=== PATIENT | female | born 1970 | race Caucasian/White ===

== ENCOUNTER → 2018-04-19 08:09 | Outpatient (CLI) | payer OTHER, SELFPAY ==
[2018-04-19 12:19] LABS: Absolute Lymphocyte Count 2.64 X10^3/ul (0.83-4.51); Basophil# 0.03 X10^3/uL; Basophil% 0.3 % (0-1); Eosinophil# 0.13 X10^3/uL; Eosinophils% 1.4 % (0-5); Hematocrit 43.9 % (37-47); Hemoglobin 13.9 g/dl (12.0-15.0); Lymphocyte # 2.64 X10^3/ul (4.0); Lymphocyte % 28.1 % (19-41); Mean Corp Hgb Conc 31.7 g/gl (32-36); Mean Corpuscular Hgb 27.7 pg (27.0-32.0); Mean Corpuscular Volume 87.5 fL (81-99); Mean Platelet Vol. 10.9 fl (6.2-12.0); Monocyte# 0.56 X10^3/uL; Neutrophil # 5.96 X10^3/uL (2.7-7.7); Neutrophil % 63.6 % (47-70); Platelet Count 318 K/mm3 (150-450); RBC Distribution Width CV 13.8 % (11.6-14.6); RBC Distribution Width SD 43.9 fl (35.1-43.9); Red Blood Count 5.02 M/mm3 (4.2-5.4); White Blood Count 9.4 K/mm3 (4.4-11.0)
[2018-04-19 12:28] LABS: POSITIVE COUNT NO; POSITIVE DIFFERENTIAL NO; POSITIVE MORPHOLOGY NO
[2018-04-19 12:34] LABS: Microalbumin,Random Urine 17.6 mg/L (NO RANGE EST.); Microalbumin:Creatinine Ratio 5.7 mg/g CRE (<30 mg/g CRE)
[2018-04-19 12:44] LABS: ALB/GLOB Ratio 0.9 RATIO (0.9-2.4); AST(SGOT) 19 U/L (15-37); Alanine Aminotransfer ALT/SGPT 40 U/L (13-56); Albumin, Serum 3.7 g/dL (3.2-5.0); Alkaline Phosphatase 85 U/L (45-117); Anion Gap 8 (5-15); BUN 12 mg/dL (7-18); BUN/Creat Ratio 15.2 RATIO (10-20); Calcium,Total 8.8 mg/dL (8.5-10.1); Chloride 103 mmol/L (98-107); Cholesterol 171 mg/dL (200); Creatinine, Serum 0.79 mg/dL (0.55-1.02); EST Glomerular Filtration Rate 83 mL/min (>60); Est Glom Filt Rate - Afr Amer 100 mL/min (>60); Globulin 4.2 g/dL (2.2-4.2); Glucose 85 mg/dL (74-106); High Density Lipoprotein 36 mg/dL; Potassium 4.2 mmol/L (3.5-5.1); Protein, Total 7.9 g/dL (6.4-8.2); Sodium Level 138 mmol/L (136-145); Triglycerides 157 mg/dL; Very Low Density Lipoprotein 31 mg/dL (5-40)
== END ==
PROVIDERS: Visit Provider Family Medicine
DX: I10 Essential (primary) hypertension (principal)
CPT/HCPCS: 36415; 80053; 80061; 82043; 82570; 85025

== ENCOUNTER → 2018-05-14 12:52 | Outpatient (CLI) | payer OTHER, SELFPAY ==
--- NOTE | 2018-05-14 12:59 | STE_ITS ---
Reason For Study: Chest Pain, HTN Stress Results Protocol: Seamus Protocol Maximum Predicted HR: 173 bpm Target HR: 147 bpm% Max imum Predicted HR: 94 % DurationHeart Rate Stage (mm:ss) (bpm) BPCom ment Baseline 76 124/78 Definity 3 ML Given Diluted; No Chest Pain Seamus Protocol Stage I 3:00 12 3 144/72No Chest Pain Seamus Protocol Stage II 3:00 14 4 148/76No Chest Pain Seamus Protocol Stage III 2:00 16 2 156/72Mild Chest Pressure Recovery 107 130/7 2No Chest Pain Stress Duration: 8:00 mm:ss Maximum Stress HR: 162 bpmM ETS: 10 Baseline Echocardiogram Findings Stress Echo Wall motion Data Resting WMIntermediate WMStress WM Resting Wall Motion Wall Motion Stress No regional wall motion No regional wall motion abnormalities noted. abnormalities noted. Ejection Fraction 60 %. Ejection Fraction 65 %. Stress Results Normal blood pressure response to exercise. Exercise was stopped due to dyspnea. EKG Data Baseline ECG demonstrates normal sinus rhythm with a rate of 85 beats per minute. Normal intervals are noted. The resting blood pressure was 124/78. The patient exercised according to the regular Seamus protocol for a total duration of 8 minutes. The maximum heart rate attained was 164 beats per minute. This was 94% of maximum predicted heart rate. The patient exercised into stage 3 of the Seamus protocol. During stress, there were no ST or T wave changes noted to suggest ischemia. At peak exercise, upsloping ST changes only were noted, which did not meet the criteria for ischemia. The peak blood pressure was 156/72. No arrhythmias noted. No clinical angina was noted. The stress ECG displays normal ST segments. Interpretation Summary Normal resting LV systolic function. Nonstenotic valves. With stress, the LV size decreased and all segments augmented normally. The LVEF increased from 60% to 65%. Negative for ischemia at 94% of MPHR and at 10.1 METS. Normal exercise stress echo at a high workload. Ordering Physician: Rodger Collins Referring Physician: Clayton Melendez MD Performed By: Heidi Carrizales, KATE, RVT
== END ==
PROVIDERS: Family Provider Family Medicine; PCP Family Medicine; Visit Provider Family Medicine
DX: I10 Essential (primary) hypertension (principal); R07.9 Chest pain, unspecified
CPT/HCPCS: 93017; 93350; Q9957; A4216; C8928

== ENCOUNTER → 2018-05-17 09:29 | Outpatient (CLI) | payer OTHER, SELFPAY ==
[2018-05-17 12:51] LABS: Thyroid Stim Hormone (TSH) 2.81 uIU/mL (0.358-3.74)
[2018-05-21 19:06] LABS: HPV Reflexed? NOT INDICATED
== END ==
PROVIDERS: Family Provider Family Medicine; PCP Family Medicine; Visit Provider Family Medicine
DX: Z12.4 Encounter for screening for malignant neoplasm of cervix (principal); N92.1 Excessive and frequent menstruation with irregular cycle
CPT/HCPCS: 36415; 84439; 84443; 88175; G0145

== ENCOUNTER → 2019-08-07 | Outpatient (CLI) | payer OTHER, SELFPAY ==
[2019-08-07 09:36] LABS: Bacteria 0 SEEN /hpf (None Seen); Mucous, Urine 0 SEEN /hpf (<or=2+); Red Blood Cells-Urine 0 SEEN /hpf (0-5); White Blood Cells 0 SEEN /hpf (0-5)
[2019-08-07 12:52] LABS: Color, Urine Yellow (Yellow); Glucose, Dipstick Normal (Normal); Ketone-Dipstick Negative (Negative); Leukocyte Esterase-Dipstick Negative /ul (Negative); Nitrite-Dipstick Negative (Negative); Occult Blood-Urine Negative /ul (Negative); Protein-Dipstick Negative (Negative); Specific Gravity, Urine 1.005 (1.002-1.030); Urine Bilirubin Dipstick Negative (Negative); Urine Clarity Clear (Clear); Urine Urobilinogen Normal (Normal)
[2019-08-07 13:00] LABS: Squamous Epithelial Cells - UA 0-5 SEEN /hpf (5-10)
== END | disposition home or self-care (01) ==
PROVIDERS: Family Provider Family Medicine; PCP Family Medicine; Visit Provider Family Medicine
DX: N39.0 Urinary tract infection, site not specified (principal)
CPT/HCPCS: 81001; 87086; 87088

== ENCOUNTER → 2019-08-09 | Outpatient (CLI) | payer OTHER, SELFPAY ==
[2019-08-09 12:56] LABS: Absolute Lymphocyte Count 2.19 X10^3/uL (0.83-4.51); Absolute Neutrophil Count 5.1 X10^3/uL (2.0-7.7); Basophil# 0.04 X10^3/uL; Basophil% 0.5 % (0-1); Eosinophil# 0.14 X10^3/uL; Eosinophils% 1.8 % (0-5); Hematocrit 45.5 % (37-47); Hemoglobin 14.5 g/dL (12.0-15.0); Lymphocyte # 2.19 X10^3/ul (4.0); Lymphocyte % 27.9 % (19-41); Mean Corp Hgb Conc 31.9 g/dL (32-36); Mean Corpuscular Hgb 28.5 pg (27.0-32.0); Mean Corpuscular Volume 89.4 fL (81-99); Mean Platelet Vol. 10.9 fl (6.2-12.0); Monocyte# 0.37 X10^3/uL; Monocyte% 4.7 % (0-10); NRBC Flagged by Analyzer 0 % (0-5); Neutrophil # 5.07 X10^3/uL (2.7-7.7); Neutrophil % 64.7 % (47-70); Platelet Count 295 K/mm3 (150-450); RBC Distribution Width CV 13.2 % (11.6-14.6); RBC Distribution Width SD 43.4 fl (35.1-43.9); Red Blood Count 5.09 M/mm3 (4.2-5.4); White Blood Count 7.8 K/mm3 (4.4-11.0)
[2019-08-09 13:13] LABS: ALB/GLOB Ratio 0.9 RATIO (0.9-2.4); AST(SGOT) 23 U/L (15-37); Alanine Aminotransfer ALT/SGPT 46 U/L (13-56); Albumin, Serum 3.6 g/dL (3.2-5.0); Alkaline Phosphatase 77 U/L (45-117); Anion Gap 5 (5-15); BUN 10 mg/dL (7-18); BUN/Creat Ratio 12.5 RATIO (10-20); CRP 6.09 mg/L (0.0-3.0); Calcium,Total 8.9 mg/dL (8.5-10.1); Chloride 108 mmol/L (98-107); Cholesterol 180 mg/dL (200); EST Glomerular Filtration Rate 81 mL/min (>60); Est Glom Filt Rate - Afr Amer 98 mL/min (>60); Glucose 95 mg/dL (74-106); High Density Lipoprotein 35 mg/dL; Potassium 4.3 mmol/L (3.5-5.1); Protein, Total 7.6 g/dL (6.4-8.2); Sodium Level 141 mmol/L (136-145); T4 Free Direct 0.94 ng/dL (0.76-1.46); Thyroid Stim Hormone (TSH) 3.19 uIU/mL (0.358-3.74); Triglycerides 252 mg/dL; Very Low Density Lipoprotein 50 mg/dL (5-40)
== END | disposition home or self-care (01) ==
LOC: LAB.FUTURE 08:16
PROVIDERS: Family Provider Family Medicine; PCP Family Medicine; Visit Provider Family Medicine
DX: Z00.00 Encounter for general adult medical examination without abnormal findings (principal); R50.9 Fever, unspecified; R53.83 Other fatigue; N39.0 Urinary tract infection, site not specified
CPT/HCPCS: 36415; 80053; 80061; 82306; 84439; 84443; 85025; 86140; 87086; 87088

== ENCOUNTER → 2020-02-27 | Outpatient (CLI) | payer OTHER, SELFPAY | END | disposition home or self-care (01) | PROVIDERS: PCP Family Medicine; Referring Provider Family Medicine; Visit Provider Family Medicine | DX: R50.9 Fever, unspecified (principal) | CPT/HCPCS: 87633; 87804 ==

== ENCOUNTER → 2020-09-04 | Outpatient (CLI) | payer OTHER, SELFPAY ==
[2020-08-25 14:48] VITALS: BMI 38.0
--- NOTE | 2020-09-04 09:16 | US_ITS ---
STUDY: ULTRASOUND OF THE FEMALE PELVIS - COMPLETE REASON FOR EXAM: Female, 49 years old.. Abnormal uterine bleeding. LMP: 08/26/2020. TECHNIQUE: Transabdominal and Transvaginal TECHNICAL QUALITY: Adequate. COMPARISON: None. FINDINGS: The uterus is anteverted and is in a midline position. The uterus measures 7.1 x 4.7 x 4.4 cm cm. There is a Nabothian cyst of the cervix. The endometrium measures 5 mm in thickness, and is hyperechoic. There is no demonstrated endometrial mass. There is no demonstrated myometrial mass. I.U.D. - The patient does not have an I.U.D. The right ovary is visualized. The right ovary measures 2.3 x 1.9 x 1.5 cm cm. There is no right ovarian cyst or ovarian mass. There is no visualized right adnexal mass or complex lesion. There is normal arterial and normal venous vascularity. The left ovary is visualized. The left ovary measures 3.4 x 3.2 x 2.3 cm cm. There is no left ovarian cyst or ovarian mass. There is no visualized left adnexal mass or complex lesion. There is normal arterial and normal venous vascularity. There is no fluid in the cul-de-sac. The pre void volume of the bladder was 354 ml. The urinary bladder is grossly normal. Polycystic ovary disease: No. US/Pelvic (Non ) IMPRESSION: Normal female pelvis. Electronically Signed: Anthony Pimentel DO at 12:17 EDT Tel [phone], Service support ,
--- NOTE | 2020-09-04 09:16 | US_ITS ---
STUDY: ULTRASOUND OF THE FEMALE PELVIS - COMPLETE REASON FOR EXAM: Female, 49 years old.. Abnormal uterine bleeding. LMP: 08/26/2020. TECHNIQUE: Transabdominal and Transvaginal TECHNICAL QUALITY: Adequate. COMPARISON: None. FINDINGS: The uterus is anteverted and is in a midline position. The uterus measures 7.1 x 4.7 x 4.4 cm cm. There is a Nabothian cyst of the cervix. The endometrium measures 5 mm in thickness, and is hyperechoic. There is no demonstrated endometrial mass. There is no demonstrated myometrial mass. I.U.D. - The patient does not have an I.U.D. The right ovary is visualized. The right ovary measures 2.3 x 1.9 x 1.5 cm cm. There is no right ovarian cyst or ovarian mass. There is no visualized right adnexal mass or complex lesion. There is normal arterial and normal venous vascularity. The left ovary is visualized. The left ovary measures 3.4 x 3.2 x 2.3 cm cm. There is no left ovarian cyst or ovarian mass. There is no visualized left adnexal mass or complex lesion. There is normal arterial and normal venous vascularity. There is no fluid in the cul-de-sac. The pre void volume of the bladder was 354 ml. The urinary bladder is grossly normal. Polycystic ovary disease: No. US/Transvaginal Non- IMPRESSION: Normal female pelvis. Electronically Signed: Anthony Pimentel DO at 12:17 EDT Tel [phone], Service support ,
== END | disposition home or self-care (01) ==
LOC: US 09:16
PROVIDERS: PCP Family Medicine; Referring Provider Obstetrics & Gynecology; Visit Provider Obstetrics & Gynecology
DX: N93.9 Abnormal uterine and vaginal bleeding, unspecified (principal); N95.1 Menopausal and female climacteric states
CPT/HCPCS: 76830; 76856

== ENCOUNTER → 2020-10-21 | Outpatient (CLI) | payer OTHER, SELFPAY ==
[2020-08-25 14:48] VITALS: BMI 38.0
== END | disposition home or self-care (01) ==
LOC: LABSPEC 11:50
PROVIDERS: PCP Family Medicine; Visit Provider Family Medicine
DX: Z20.828 Contact with and (suspected) exposure to other viral communicable diseases (principal)
CPT/HCPCS: 87635; U0003

== ENCOUNTER 2021-02-09 07:45 | Day surgery (SDC) | payer OTHER, SELFPAY ==
[2021-01-19 16:00] VITALS: BMI 37.4
--- NOTE | 2021-02-05 08:34 | EKG12_ITS ---
Test Reason : PREOP Blood Pressure : / mmHG Vent. Rate : 081 BPM Atrial Rate : 081 BPM P-R Int : 128 ms QRS Dur : 082 ms QT Int : 376 ms P-R-T Axes : 055 050 047 degrees QTc Int : 436 ms Sinus rhythm with frequent Premature ventricular complexes Otherwise normal ECG Confirmed by KASIE ROSENBERG, KARIE ([id number]), state editor ROSI SMYTH ([id number]) on 02/08/2021 9:26:53 AM Referred By: Tesha Reece Confirmed By:FLORINDA FERRO MD
[2021-02-05 09:12] LABS: Hematocrit 45.1 % (37-47); Hemoglobin 14.2 g/dL (12.0-15.0); Mean Corp Hgb Conc 31.5 g/dL (32-36); Mean Corpuscular Hgb 27.9 pg (27.0-32.0); Mean Corpuscular Volume 88.6 fL (81-99); Mean Platelet Vol. 10.7 fl (6.2-12.0); Platelet Count 357 K/mm3 (150-450); RBC Distribution Width CV 13.8 % (11.6-14.6); RBC Distribution Width SD 44.6 fl (35.1-43.9); Red Blood Count 5.09 M/mm3 (4.2-5.4); White Blood Count 12.3 K/mm3 (4.4-11.0)
[2021-02-05 09:51] LABS: Magnesium 2.1 mg/dL (1.6-2.6)
--- NOTE | 2021-02-08 17:12 | HP.PCM_ITS ---
- Problem List (1) Abnormal uterine bleeding Status: Acute Comment: s/p lab evaluation and us. failed hormonal management. proceed with [facility] BS possible cystoscopy, plan same day surgery (2) Climacteric Status: Chronic Comment: discussed medical vs exp management. History and Physical Date of Admission: 02/09/21 Intake Vital Signs 01/19/21 Height 5 ft 1 in 01/19/21 Weight: 198 lb 01/19/21 BMI 37.4 01/19/21 BP 112/74 Intake Visit Reasons: med check Chief Complaint: Ashlyna ocp med check Core Winding Operator Required: No Is patient in pain?: No Allergies No Known Allergies Allergy (Verified 01/19/21 16:00) Medications fluoxetine 20 mg capsule 20 mg PO DAILY 08/25/20 [History Confirmed 01/19/21] metoprolol succinate 25 mg tablet,extended release 24 hr 25 mg PO DAILY 08/25/20 [History Confirmed 01/19/21] L norgest/E estradiol-E estrad 0.15 mg-30 mcg (84)/10 mcg(7) tabs,3mos 1 tab PO DAILY #91 tab 11/23/20 [Rx Confirmed 01/19/21] Is last menstrual period known: No Post menopausal: No Patient : No : No PFSH Medical History Anxiety and depression (Acute) Enlarged heart (Acute) Surgical History History of cholecystectomy (Acute) History of endometrial ablation (Acute) Previous section (Acute) bladder pelvic mesh (Acute) Family History Mother Myocardial infarction Hypertension Breast cancer Diverticulitis Father Cancer Hypertension heart [place] Grandmother Breast cancer Sister Anxiety Social History (Updated 01/20/21 @ 06:[address] 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 She is still having breakthrough bleeding symptoms and some climacteric symptoms like hot flashes also. She stopped bleeding for the first 2 weeks but then started bleeding the third week of the pack and going into the fourth week. She has significant intermittent cramping with this also that was not controlled. She also complains of headaches with hormone. Female Reproductive History Questions: Metorrhagia: No, Sexually active: Yes, Dyspareunia: No, PCB: No Pregancy History 4 Elective abortions Hx Para 2 Spontaneous abortions Hx # Term Pregnancies Ectopic pregnancies Hx # Pregnancies Multiple births # of living children Past Pregnancies Del. Date Name GA/Weeks Outcome Route Bth Weight Gen Labor Lgth Anesthesia Del Locatn Provider FOB Unknown 1997 [place] live - full term Male Unknown 2004 [place] live - full term C-s ection Delivery Date: placental rupture AugustineCindy Delivery Date: No notes to display ROS Const Constitutional: Denies fatigue, fever(s), headache(s), increased appetite, poor appetite, weight gain or weight loss Cardio Card: Denies chest pain Resp Resp: Denies cough or dyspnea GI GI: Reports as per HPI; denies abdominal pain, constipation, nausea or vomiting : Reports as per HPI; denies difficulty urinating, painful urination, nipple discharge, urinary frequency, urinary incontinence, urinary hesitancy, urinary urgency, vaginal discharge, vaginal dryness, vaginal odor or vaginal itching Skin Skin/Breast: Denies change in hair, breast lump, breast pain, breast skin changes or nipple discharge Exam Const General: cooperative, healthy appearing, comfortable, no acute distress, well developed Nutritional Appearance: average body habitus Orientation: alert [facility] Head: normal to inspection, normocephalic Neck Neck: normal visual inspection, trachea midline Thyroid: thyroid normal Resp Effort & Inspection: normal respiratory effort GI Inspection: normal to inspection, non-distended Palpation: soft, no hepatosplenomegaly Skin General: no rashes or lesions noted Assessment & Plan Problems 1. Climacteric N95.1 discussed medical vs exp management. 2. Abnormal uterine bleeding N93.9 s/p lab evaluation and us. failed hormonal management. proceed with [facility] possible cystoscopy, plan same day surgery Plan After discussing the patient's diagnosis and treatment plan options, patient wishes to proceed with surgical management. I have discussed with the patient the risks, benefits, and alternatives of the procedure which include but are not limited to risks of anesthesia, bleeding, infection, possible damage to bowel, bladder, or surrounding vasculature which could lead to additional surgery to evaluate any complications. Patient agrees to procedure and wishes to proceed. ACOG/uptodate references given for additional information regarding procedure. Coding Level of Care Code Off vis,est,level 4 Diagnoses Climacteric N95.1 Abnormal uterine bleeding N93.9 UPDATE- I have seen the patient and performed any clinically relevant updates to the history and physical exam. Tesha Reece MD
[2021-02-09] VITALS (12 sets, daily range): BP systolic 115–142; BP diastolic 60–83; PULSE 75–100; RESP 16–20; TEMP 36.3–37.1; O2SAT 93–98; BMI 37.8
[2021-02-09] MEDS: dexAMETHasone 10 MG/ML Vial 8 MG IV (07:00)
[2021-02-09] MEDS: Scopolamine 1mg/72hr Patch 1 PATCH TD (07:00)
[2021-02-09 08:21] LABS: Internal QC Validated? YES +Cl - CLEAR BKGD; Pregnancy, Urine Negative Negative
[2021-02-09] MEDS: Lactated Ringers 1,000 ML 40 ML IV (08:55)
[2021-02-09] MEDS: Enoxaparin 40 MG/0.4 ML Syringe SC (08:55)
[2021-02-09] MEDS: Phenazopyridine 95 MG Tablet 190 MG PO (08:55)
[2021-02-09] MEDS: Acetaminophen 500 MG Tablet 1000 MG PO (08:55)
[2021-02-09] MEDS: Celecoxib 200 MG Capsule 400 MG PO (08:56)
[2021-02-09] MEDS: Gabapentin 600 MG Tablet PO (08:56)
--- NOTE | 2021-02-09 08:59 | PCM.OPRPT ---
Problem List (1) Abnormal uterine bleeding Status: Acute Comment: s/p lab evaluation and us. failed hormonal management. proceed with [facility] BS possible cystoscopy, plan same day surgery (2) Climacteric Status: Chronic Comment: discussed medical vs exp management. Report of Operation Date of Procedure: 02/09/21 Pre-Operative Diagnosis: AUB Post-Operative Diagnosis: same Surgery/Procedure Performed:: [facility] bs Description of Surgical Findings:: severe vesicouterine scar tissue talent development coordinator: Diane Shaw Type of Anesthesia:: General Special Medications: bubba Specimen's removed: uterus tubes Drains: martin Estimated Blood Loss (mL): 100 Fluids Replaced: crystalloid Description of Procedure: Patient received preoperative antibiotics and SCDs were on preoperatively. Patient was taken back to the operating room and placed in the dorsal lithotomy position. General anesthesia was induced and patient was prepped and draped in normal sterile fashion. Uterine manipulator was placed inside the uterus and Martin catheter placed in the bladder. The umbilicus was grasped with towel clamps and an intraumbilical incision was made after injecting with quarter percent Marcaine and a Veress needle entered into the abdomen confirmed to be intra-abdominal with a low opening pressure. Abdomen was insufflated with CO2 gas and the Veress needle removed and the 5 mm trocar was placed under direct visualization without complication. Right and left lower quadrants were transilluminated and injected with quarter percent Marcaine and 5 mm ports placed under direct visualization. Pelvis was well visualized see operative findings for additional information. uterine perforation with uterine manipulator was noted without complication. filshie clips were noted to be in the anterior culd de sac and removed, so a total of four filshie clips were removed. Bilateral fallopian tubes were identified and transected with the LigaSure device across the mesosalpinx to the level of the utero-ovarian ligament which was also transected with the LigaSure device. The broad ligament was opened up by transecting the round ligament bilaterally and skeletonizing the uterine vessels bilaterally and creating a bladder flap using the LigaSure device. The uterine arteries were transected bilaterally with good visualization of the bladder and the ureters were seen to be inferior lateral to the operative area. dense vesicouterine scar tissue was seen and sharply dissected and with hydrodissection. Attention was then paid to the vaginal portion of the procedure and the cervix was grasped with Marbella clamps and circumferentially injected with dilute vasopressin. A circumferential incision was made and the vaginal mucosa was mobilized off posteriorly and the cul-de-sac entered into sharply and a longneck speculum placed. The anterior cul-de-sac was then identified and entered into sharply. The uterosacral ligaments were clamped cut and suture ligated with 0 Monocryl bilaterally followed by the cardinal ligaments which were clamped cut and suture ligated bilaterally with 0 Monocryl. The uterus serially descended and was removed without difficulty with no morcellation. Pelvic sidewall pedicles were checked and noted to have excellent hemostasis. The vaginal mucosa was reapproximated incorporating the posterior peritoneum. This was reapproximated using 0 Vicryl [id number] sutures. Excellent hemostasis was noted. The pelvis and cul-de-sac was well visualized and no significant active bleeding noted but some raw areas were seen on the peritoneum and therefore Bubba was applied. Pressure was taken down and the areas visualized and noted of excellent hemostasis. All ports were removed under direct visualization without complication and the abdomen was desufflated of air. The instruments removed from the abdomen and the vagina vaginal sweep was negative. Port sites on the abdomen were closed with 4-0 Monocryl interrupted sutures and Steri's and windows were applied. She was awoken and taken recovery in stable condition. Grafts/Implants Used: none - Complications none - Admit VTE Documentation VTE Present on Admission: No VTE Mechan Device Prophylaxis: SCD's Multi Select Codes - Urinary/Genital Urinary/Genital CPT Codes: 79803 LAVH+BS/O <250gr Uterus
--- NOTE | 2021-02-09 09:03 | PCM.DC.VHY ---
Discharge Diet: No Restrictions Discharge Activity: Return to Normal Activity, May Not Drive, May Shower May resume sexual activity in: 6-8 weeks Call your doctor if your incision/area has: Continuous Slow Oozing, Sudden Increased Bleeding, Increased Pain/ Swelling, Increased Redness, Foul Smelling Discharge Call your doctor if you observe: Fever of 101 or Higher, Inability to urinate, Inability to have a bowel movement, Using more than one pad per hour Allergies/Adverse Reactions: Allergies No Known Allergies Allergy (Verified 02/09/21 07:56) Medications to take at Discharge fluoxetine 20 mg capsule 20 mg PO DAILY 08/25/20 metoprolol succinate 25 mg tablet,extended release 24 hr 50 mg PO DAILY 08/25/20 L norgest/E estradiol-E estrad 0.15 mg-30 mcg (84)/10 mcg(7) tabs,3mos 1 tab PO DAILY #91 tab 11/23/20 Cholecalciferol (VIT D3) [Vitamin D] 1,000 unit PO DAILY 02/02/21 Loratadine [Claritin] 10 mg PO DAILY 02/02/21 Magnesium Amino Acid Chelate [Magnesium] 100 mg PO DAILY 02/02/21 Vitamin C/Biotin [Kivw-Uiqp-Vnbqf Gummies] 1 ea PO DAILY 02/02/21 Naproxen [Naprosyn] 250 - 500 mg PO Q8H PRN PRN #30 tab 02/09/21 Oxycodone HCl/Acetaminophen [Percocet 5-325] 1 - 2 tablet PO Q6H PRN PRN 7 Days #15 tablet 02/09/21 The following prescriptions were given: Naproxen [Naprosyn] 250 - 500 mg PO Q8H PRN PRN #30 tab PRN Reason: MILD PAIN Transmission Status: Pending to [facility] Oxycodone HCl/Acetaminophen [Percocet 5-325] 1 - 2 tablet PO Q6H PRN PRN 7 Days #15 tablet PRN Reason: Pain Transmission Status: Sent to [facility] Primary Care Physician: Rodger Collins DO [Primary Care Provider] - Test Results: Test results from this visit will be discussed in further detail at your follow-up appointment, if applicable. Please Follow Up With: Tesha Reece MD - [phone]
[2021-02-09 09:05] LABS: Bedside Glucose 146 mg/dL (70-110)
[2021-02-09] MEDS: Cefazolin 2 GM in 0.9% Normal Saline 100 ML IV (09:43)
--- NOTE | 2021-02-09 10:00 | HYST_PTH ---
PATIENT: MITCHEL ANAYA LOC: [facility] [place] U#:[id number] AGE/SX: 50/F ROOM: RE02/09/[address]: Dr. Tesha eRece MD : [id number] BED: DIS: 02/09/2021 SPEC #: [id number] RECD: 02/09/21 12:17 STATUS: RADHA RELyndon #: [id number] IMTIAZ: 02/09/21 10:[address]: Tesha Reece DEPT: SURGICAL PATHOLOGY RECD BY: Prudence Thapa ENTERED: 02/09/21 12:48 SP TYPE: HYSTERECT OTHR DR: Dr. Rodger Collins, DO Tissues: Uterus, NOS Procedures: Surgery Specimen Level V HEADER OPERATION: ERAS, hysterectomy, LAVH, salpingectomy PRE-OP DIAGNOSIS: Abnormal uterine bleeding TISSUE SUBMITTED: Uterus, cervix, bilateral fallopian tubes MICROSCOPIC DIAGNOSIS Uterus, hysterectomy: Cervix - minimal chronic inflammation and nabothian cysts. Endometrium - weakly proliferative to inactive endometrium. Myometrium - focal adenomyosis. Right fallopian tube - benign paratubal cyst. Left fallopian tube - no pathologic change. AM:zaid 02/10/2021 MICROSCOPIC DESCRIPTION Slides are reviewed. GROSS DESCRIPTION Received in fixative is one container labeled with the patient's name and designated uterus. The specimen consists of a uterus with attached cervix and fallopian tubes. The uterus with cervix measures 7.5 x 6 x 4 cm and weighs 78 gm. The ectocervix is grossly unremarkable. The endocervical canal measures 3.5 cm in length and is grossly unremarkable. The triangular endometrial cavity measures 3 x 2.5 cm. The endometrium is reddish-montejo and measures up to 0.1 cm in thickness. The right and left fallopian tubes are similar in appearance with average lengths of 6 cm and average diameters of 0.6 cm. The right fallopian tube contains an intact Filshie-type clip and a paratubal measuring 2 x 1 x 1 cm and containing clear fluid. The myometrium measures 2 cm in average thickness and is free of mass lesions. Permanent Waver sections are submitted as follows: 1 - anterior cervix, 2 - posterior cervix, 3 & 4 - anterior uterine wall, 5 & 6 - posterior uterine wall, 7 - right paratubal cyst, 8 - right fallopian tube, 9 - left fallopian tube. / AM:zaid 02/09/21 TC:1 [facility]: [id number]
[2021-02-09] MEDS: Vasopressin 20 UNITS/ML Vial (11:11)
[2021-02-09] MEDS: Bupivacaine 0.25% 30 ML Vial (11:42)
[2021-02-09] MEDS: Lactated Ringers 1,000 ML 70 ML IV (12:02)
[2021-02-09] MEDS: Ondansetron 4 MG/2 ML Vial IV (12:05)
[2021-02-09 16:42] LABS: Hematocrit 40.5 % (37-47); Hemoglobin 12.9 g/dL (12.0-15.0); Mean Corp Hgb Conc 31.9 g/dL (32-36); Mean Corpuscular Hgb 27.7 pg (27.0-32.0); Mean Corpuscular Volume 87.1 fL (81-99); Platelet Count 335 K/mm3 (150-450); RBC Distribution Width CV 13.4 % (11.6-14.6); RBC Distribution Width SD 42.4 fl (35.1-43.9); Red Blood Count 4.65 M/mm3 (4.2-5.4); White Blood Count 13.8 K/mm3 (4.4-11.0)
== END 2021-02-09 16:37 | disposition home or self-care (01) ==
LOC: SDC 07:45 → AC 07:45
PROVIDERS: Anesthesiology; PCP Family Medicine; Referring Provider Obstetrics & Gynecology; Visit Provider Obstetrics & Gynecology
PROC: 0UT9FZZ Resection of Uterus, Via Natural or Artificial Opening With Percutaneous Endoscopic Assistance (ICD-10-PCS; CPT 58552; principal; 2021-02-09 09:45)
DX: N80.0 Endometriosis of uterus (principal); N88.8 Other specified noninflammatory disorders of cervix uteri; N72 Inflammatory disease of cervix uteri; N83.8 Other noninflammatory disorders of ovary, fallopian tube and broad ligament; I10 Essential (primary) hypertension; Z79.899 Other long term (current) drug therapy; Z20.822 Contact with and (suspected) exposure to COVID-19
CPT/HCPCS: 00840; 58552; 36415; 81025; 82962; 83735; 85027; 86850; 86900; 86901; 87426; 88307; 93005; C9803; J7120; J2405

== ENCOUNTER → 2021-03-25 | Outpatient (CLI) | payer BC, SELFPAY ==
[2021-03-25 15:18] VITALS: BMI 39.2
== END | disposition home or self-care (01) ==
LOC: LABSPEC 16:52
PROVIDERS: PCP Family Medicine; Referring Provider Obstetrics & Gynecology; Visit Provider Obstetrics & Gynecology
DX: R30.9 Painful micturition, unspecified (principal)
CPT/HCPCS: 87077; 87086; 87088; 87186

== ENCOUNTER → 2021-04-30 12:26 | Outpatient (CLI) | payer BC, SELFPAY ==
[2021-03-25 15:18] VITALS: BMI 39.2
--- NOTE | 2021-04-30 12:31 | US_ITS ---
STUDY: RENAL ULTRASOUND - COMPLETE REASON FOR EXAM: Female, 50 years old. UTI TECHNIQUE: Ultrasound evaluation of the kidneys was performed with real-time and static sharma-scale imaging. COMPARISON: None. FINDINGS: RIGHT KIDNEY: Normal location of the right kidney, which is normal in size. The right kidney measures 11.8 cm x 4.6 cm x 4.5 cm. There is a normal cortex of the right kidney. The renal cortex measures 1.8 cm. There is no right renal mass or cyst. There are no right renal calculi. There is no right hydronephrosis. DISTAL RIGHT URETER: There is non-visualization of the distal right ureter. There is no demonstrated right ureterovesical junction calculus. There is a visualized right ureteral jet. LEFT KIDNEY: Normal location of the left kidney, which is normal in size. The left kidney measures 11 cm x 5.9 cm x 4 cm. There is a normal cortex of the left kidney. The renal cortex measures 1.9 cm. There is no left renal mass or cyst. I suspect a 4 mm nonobstructive left intrarenal calculus. There is no left hydronephrosis. DISTAL LEFT URETER: There is non-visualization of the distal left ureter. There is no demonstrated left ureterovesical junction calculus. There is a visualized left ureteral jet. BLADDER: The distended urinary bladder has a volume of 236 ml. There is a normal wall thickness of the distended urinary bladder. There is no demonstrated mass within the urinary bladder. There are no demonstrated bladder calculi. US/Kidney and Bladder IMPRESSION: Normal ultrasound of the kidneys and urinary bladder. I suspect a 4 mm nonobstructive left intrarenal calculus. Electronically Signed: Bhavesh Knox MD at 15:30 EDT , Service support ,
== END ==
PROVIDERS: PCP Family Medicine; Referring Provider Urology; Visit Provider Urology
DX: N39.0 Urinary tract infection, site not specified (principal)
CPT/HCPCS: 76770

== ENCOUNTER 2021-06-29 07:32 | Day surgery (SDC) | payer BC, SELFPAY ==
[2021-03-25 15:18] VITALS: BMI 39.2
[2021-06-29 07:56] VITALS: BP 133/81; PULSE 90; RESP 18; TEMP 36; O2SAT 96; BMI 37.8
[2021-06-29] MEDS: Lactated Ringers 1,000 ML 100 ML IV (08:14)
--- NOTE | 2021-06-29 09:23 | OP.PCM_ITS ---
Problems Associated Problem List Diagnoses (1) Urgency of micturition: (2) Frequency of urination: (3) Urinary tract bacterial infections: Report of Operation Date of Procedure: 06/29/21 Pre-Operative Diagnosis: Urinary urgency, urinary frequency, urinary tract infection Post-Operative Diagnosis: Same Surgery/Procedure Performed:: Cystoscopy, hydrodistention Surgeon: Jennifer Nieves Type of Anesthesia: MAC Specimen's removed: None Description of Procedure: The patient is a 50-year-old female who has been novoa ving episodes of significant urgency, frequency and bladder discomfort and urinary tract infections. She was unable to tolerate a cystoscopy in the office secondary to urethral discomfort. The decision was made to take her to the operating room for cystoscopy, possible bladder biopsy, possible hydrodistention under anesthesia. Informed consent was obtained. The patient was taken to the operating room and placed on the operating room table. Anesthesia monitored the head, neck, airway, IV access and vital signs throughout the case. Once anesthesia was appropriate ministered the patient was placed into dorsal lithotomy position was prepped and draped in usual sterile fashion. The cystoscope was inserted through the urethra under direct visualization into the urinary bladder. I was unable to visualize any mesh from her previous procedure. The bladder and urethral mucosa were visualized in their entirety. The ureteral orifices were identified in the area of the trigone in correct anatomic position. There was mild diffuse cystitis cystica more on the trigone than other areas. The patient's bladder was filled to capacity and allowed to sit for 2 minutes. Upon emptying of the urinary bladder the bladder capacity was measured at 275 cc. Upon reentry to the urinary bladder, there were no glomerulations identified but the bladder was injected. Once again the bladder was filled to capacity to the point where glycine was exiting around the cystoscope. This was allowed to sit for 2 minutes. The patient's bladder was then emptied and the case was terminated. She was taken to the recovery room in good condition. There were no complications during this procedure. Grafts/Implants Used: None Complications None Admit VTE Documentation VTE Present on Admission: Yes VTE Mechan Device Prophylaxis: SCD's VTE Pharm Prophylaxis ordered?: No Reason prophylaxis not ordered:: Treatment Not Indicated
--- NOTE | 2021-06-29 09:26 | PCM.DC ---
Discharge Instructions Diet Discharge Diet: No restrictions Activity Discharge Activity: Return to Normal Activity Dressing / Incision Call your doctor if you observe: Fever of 101 or Higher, Inability to urinate, Inability to have a bowel movement and Uncontrolled pain Follow Up Care Please Follow Up With: Jennifer Nieves MD When: 2 weeks in the office Test Results: Test results from this visit will be discussed in further detail at your follow-up appointment, if applicable. Discharge Plan Admission Attending Provider: Jennifer Nieves Primary Care Provider: Rodger Collins Discharge Orders/Prescriptions Prescriptions: New oxycodone-acetaminophen [Percocet] 5-325 mg tablet 1 tab PO Q8H PRN (Reason: pain) 3 Days Qty: 10 RF: 0 phenazopyridine [Pyridium] 200 MG tablet 200 mg PO TID PRN PRN (Reason: Bladder Spasms) 7 Days Qty: 30 RF: 0 Continued fluoxetine [Prozac] 20 mg capsule 20 mg PO DAILY RF: 0 metoprolol succinate 25 mg tablet extended release 24 hr 50 mg PO DAILY RF: 0 cholecalciferol (vitamin D3) 1,000 UNIT tablet 1,000 unit PO DAILY RF: 0 magnesium amino acid chelate 100 MG tablet 100 mg PO DAILY RF: 0 loratadine 10 MG capsule 10 mg PO DAILY RF: 0 vitamin C-biotin 1 EACH tablet,chewable 1 ea PO DAILY RF: 0 famotidine 20 mg tablet 20 mg PO BID RF: 0 Referrals / Follow Up: Rodger Collins DO [Primary Care Provider] - Disposition Disposition (needs filled in before D/C Order can be placed): Home, Self Care
[2021-06-29] MEDS: Cefazolin 2 GM in 0.9% Normal Saline 100 ML IV (09:42)
[2021-06-29 10:05] VITALS: BP 121/85; BP 133/81; PULSE 82; RESP 14; TEMP 36.4; O2SAT 97
[2021-06-29 10:10] VITALS: BP 120/82; BP 133/81; PULSE 86; RESP 16; O2SAT 93
[2021-06-29 10:15] VITALS: BP 127/86; BP 133/81; PULSE 82; RESP 16; O2SAT 94
[2021-06-29 10:20] VITALS: BP 132/89; BP 133/81; PULSE 81; RESP 16; TEMP 36.3; O2SAT 95
[2021-06-29 11:02] VITALS: BP 133/81
== END 2021-06-29 11:28 | disposition home or self-care (01) ==
LOC: SDC 07:33 → AC 07:33
PROVIDERS: PCP Family Medicine; Referring Provider Urology; Visit Provider Urology
PROC: 0T7B7ZZ Dilation of Bladder, Via Natural or Artificial Opening (ICD-10-PCS; CPT 52000; principal; 2021-06-29 09:05)
DX: R35.0 Frequency of micturition (principal); R39.15 Urgency of urination; N39.0 Urinary tract infection, site not specified; I10 Essential (primary) hypertension; D64.9 Anemia, unspecified; F41.9 Anxiety disorder, unspecified; F32.9 Major depressive disorder, single episode, unspecified; K21.9 Gastro-esophageal reflux disease without esophagitis; Z79.899 Other long term (current) drug therapy
CPT/HCPCS: 52000; 87426; C9803; J7120; J2405

== ENCOUNTER → 2025-01-03 | Outpatient (CLI) | payer OTHER, SELFPAY ==
[2025-01-03 12:35] LABS: Erythrocyte Sedimentation Rate 21 mm/hr (0-30)
[2025-01-03 12:37] LABS: Absolute Lymphocyte Count 3.79 X10^3/uL (0.83-4.51); Absolute Neutrophil Count 6.2 X10^3/uL (2.0-7.7); Basophil# 0.08 X10^3/uL; Basophil% 0.7 % (0-1); Eosinophil# 0.22 X10^3/uL; Hematocrit 44.6 % (37-47); Hemoglobin 14.7 g/dL (12.0-15.0); Lymphocyte # 3.79 X10^3/ul (0.83-4.51); Lymphocyte % 34.4 % (19-41); Mean Corpuscular Hgb 28.1 pg (27.0-32.0); Mean Corpuscular Volume 85.3 fL (81-99); Monocyte# 0.69 X10^3/uL; Monocyte% 6.3 % (0-10); NRBC Flagged by Analyzer 0 % (0-5); Neutrophil # 6.19 X10^3/uL (2.7-7.7); Neutrophil % 56.2 % (47-70); Platelet Count 357 K/mm3 (150-450); RBC Distribution Width CV 13.2 % (11.6-14.6); RBC Distribution Width SD 41.1 fl (35.1-43.9); Red Blood Count 5.23 M/mm3 (4.2-5.4)
[2025-01-03 13:22] LABS: ALB/GLOB Ratio 0.9 RATIO (0.9-2.4); AST(SGOT) 23 U/L (15-37); Alanine Aminotransfer ALT/SGPT 45 U/L (13-56); Albumin, Serum 3.7 g/dL (3.2-5.0); Alkaline Phosphatase 104 U/L (45-117); Anion Gap 8 (5-15); BUN 19 mg/dL (7-18); BUN/Creat Ratio 20.9 RATIO (10-20); CRP 6.35 mg/L (0.0-3.0); Calcium,Total 9.4 mg/dL (8.5-10.1); Chloride 108 mmol/L (98-107); Creatinine, Serum 0.91 mg/dL (0.55-1.02); EST Glomerular Filtration Rate 69 mL/min (>60); Est Glom Filt Rate - Afr Amer 83 mL/min (>60); Globulin 4.2 g/dL (2.2-4.2); Glucose 105 mg/dL (74-106); Potassium 3.9 mmol/L (3.5-5.1); Protein, Total 7.9 g/dL (6.4-8.2); Sodium Level 138 mmol/L (136-145)
[2025-01-05 09:07] LABS: Lyme Scn Total Ab w/Rflx Negative (Negative)
== END | disposition home or self-care (01) ==
LOC: BFHLAB 10:39
PROVIDERS: PCP Family Medicine; Visit Provider Family Medicine
DX: M79.89 Other specified soft tissue disorders (principal); R59.0 Localized enlarged lymph nodes; R53.83 Other fatigue; R68.81 Early satiety
CPT/HCPCS: 36415; 80053; 84443; 85025; 85652; 86140; 86618

== ENCOUNTER → 2025-01-23 | Outpatient (CLI) | payer OTHER, SELFPAY ==
--- NOTE | 2025-01-23 15:59 | CT_ITS ---
EXAM: CT BRAIN WITHOUT CONTRAST CLINICAL HISTORY: Headache. Dizziness. Tinnitus. Neck pain. COMPARISON: No relevant prior. TECHNIQUE: Contiguous axial scans of 3.75 mm slice thicknesses with sagittal and coronal reconstruction images. One or more dose reduction techniques were utilized (e.g., automated exposure control, adjustment of mA and/or kv according to patient size, use of iterative reconstruction technique). FINDINGS: Cerebrum: No intraparenchymal hemorrhage. No abnormal areas of encephalomalacia. No mass effect or midline shift. Colvin-white matter differentiation is normal. Ventricles and cisterns: Appropriate size for patient's age. Extra-axial fluid: Unremarkable. Posterior fossa: Unremarkable cerebellum. No abnormalities involving the brainstem. Paranasal sinuses: Normal. Vasculature: Unremarkable. Mastoid air cells: Normal. Calvarium: Unremarkable. Soft tissues: Unremarkable. CT/Brain/Head W/WO Contrast IMPRESSION: No acute intracranial abnormalities are demonstrated. Reading Location: [place] [id number]
== END | disposition home or self-care (01) ==
PROVIDERS: PCP Family Medicine; Referring Provider Family Medicine; Visit Provider Family Medicine
DX: R51.9 Headache, unspecified (principal); R42 Dizziness and giddiness; H93.19 Tinnitus, unspecified ear
CPT/HCPCS: 70470; Q9967

== ENCOUNTER → 2025-03-05 | Outpatient (CLI) | payer OTHER, SELFPAY ==
--- NOTE | 2025-03-05 16:45 | CT_ITS ---
PROCEDURE: SOFT TISSUE NECK WITH CONTRAST 03/05/2025 REASON FOR EXAM: LOCALIZED ENLARGED LYMPH NODES/OCCIPITAL NEURALGIA TECHNIQUE: CT of the soft tissues of the neck from the orbits to the upper mediastinum with intravenous contrast. CONTRAST: Omnipaque 350 VOLUME: 100 mL Not Provided Gauge IV One or more dose reduction techniques were used (e.g., Automated exposure control, adjustment of the mA and/or kV according to patient size, use of iterative reconstruction technique). COMPARISON: None FINDINGS: Lymph nodes: 13 x 8 mm right level 2A node (series 2 image 47). Otherwise, no suspicious adenopathy. Small nonspecific lymph nodes are scattered throughout the neck. Aerodigestive tract: The oral cavity is partially obscured by artifact from dental amalgam. The nasal cavities, naso-oropharynx, pharyngeal mucosal space, laryngeal structures and infraglottic trachea are within normal limits. Major salivary glands: Within normal limits. Thyroid gland: Within normal limits. Carotid space: Patent bilateral extracranial carotid and jugular systems. Intracranial contents: Imaged portions within normal limits. Paranasal sinuses, middle ears, mastoids: Clear. Orbits: Within normal limits. Bones: No suspicious osseous lesions in the imaged calvarium, skull base and spine. Normal cervicothoracic alignment. No significant spondylotic changes. Temporomandibular joints are maintained. Lungs: Imaged lungs are clear. CT/Soft Tissue Neck WITH Contrast IMPRESSION: 13 x 8 mm right palpable 2A node. Otherwise, no suspicious cervical mass or ad enopathy. Reading Location[facility]
== END | disposition home or self-care (01) ==
LOC: CT 16:41
PROVIDERS: PCP Family Medicine; Referring Provider Family Medicine; Visit Provider Family Medicine
DX: R59.0 Localized enlarged lymph nodes (principal); M54.81 Occipital neuralgia
CPT/HCPCS: 70491; Q9967